=== PATIENT | male | born 1950 | race Caucasian/White ===

== ENCOUNTER 2017-02-24 19:58 | Emergency (ER) | payer BC ==
[2017-02-24] MEDS ORDERED: Tetan/Diph/Pertus SYR(Tdap)* 0.5 ML SYR(BOOSTRIX) use SYR IM ONE (21:22)
[2017-02-24] MEDS ORDERED: Lidocaine 2% PF * 5 ML VIAL INJ ONE (21:24)
--- NOTE | 2017-02-24 21:33 | UC ---
Hand/Wrist HPI - HPI Summary HPI Summary: Cut pad of L index finger with pruners earlier today. Wound still bleeding. - History Of Current Complaint Chief Complaint: UCLaceration Stated Complaint: LEFT INDEX FINGER LACERATION Time Seen by Provider: 02/24/17 21:14 Hx Obtained From: Patient ?: No Onset/Duration: Sudden Onset Severity Initially: Mild Severity Currently: Mild Character Of Pain: Dull, Aching Alleviating: Compression Related History: Dominant Hand Right - Allergies/Home Medications Allergies/Adverse Reactions: Allergies Allergy/AdvReac Type Severity Reaction Status Date / Time Penicillins Allergy Unknown Verified 02/24/17 21:15 Reaction Details Home Medications: Home Medications Aspirin [Aspirin 81 MG TAB] 81 mg PO DAILY 02/24/17 [History Confirmed 02/24/17] Valsartan TAB* [Diovan TAB*] 1 tab PO DAILY 02/24/17 [History Confirmed 02/24/17 ] PMH/Surg Hx/FS Hx/Imm Hx Cardiovascular History Of: Reports: Hypertension Respiratory History Of: Denies: COPD, Asthma - Surgical History Surgical History: None - Family History Known Family History: Negative: Blood Disorder - Social History 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 Alcohol Use: Weekly Alcohol Amount: 3-5 Substance Use Type: None Smoking Status (MU): Former Smoker When Did the Patient Quit Smoking/Using Tobacco: age 30 - Immunization History Most Recent Tetanus Shot: unknown Review of Systems Constitutional: Negative Skin: Other - L index finger lac Eyes: Negative ENT: Negative Respiratory: Negative Cardiovascular: Negative Gastrointestinal: Negative Genitourinary: Negative Motor: Negative Neurovascular: Negative Musculoskeletal: Negative Neurological: Negative Psychological: Negative All Other Systems Reviewed And Are Negative: Yes Physical Exam Triage Information Reviewed: Yes Appearance: Well-Appearing, No Pain Distress, Well-Nourished Vital Signs: Initial Vital Signs Temp 99.3 F 02/24/17 21:08 Pulse 77 02/24/17 21:08 Resp 18 02/24/17 21:08 BP 142/77 02/24/17 21:08 Vital Signs Reviewed: Yes Eye Exam: Normal Eyes: Positive: Conjunctiva Clear ENT Exam: Normal ENT: Positive: Normal ENT inspection, Hearing grossly normal, Pharynx normal, TMs normal Dental Exam: Normal Neck exam: Normal Neck: Positive: Supple Respiratory Exam: Normal Respiratory: Positive: Chest non-tender, Lungs clear, Normal breath sounds, No respiratory distress, No accessory muscle use Cardiovascular Exam: Normal Cardiovascular: Positive: RRR, No Murmur Musculoskeletal Exam: Normal Neurological Exam: Normal Psychological Exam: Normal Skin Exam: Other - 2.5cm curved lac to L index finger pad Procedures - Laceration/Wound Repair 1 Location: upper extremity Description: Linear - curved Anesthesia: Local, 2.0% Betadine Prep?: Yes Irrigated w/ Saline (ccs): 500 Laceration/Wound Explored: clean Closure: Single Layer - #6 5-0 Suture Type: Nylon Layer Closure?: No Hand/Wrist Course/Dx - Differential Dx/Diagnosis Provider Diagnoses: L index finger laceration repair Discharge - Discharge Plan Condition: Stable Disposition: HOME Additional Instructions: Come back in 8-9 days for suture removal; come back sooner if you have increasing redness, streaking up the arm, or suspect other problems. Brief handwashing and showers are fine. Make sure you take off any bandage that is soiled or soaked and place a new one.
[2017-02-24 22:38] VITALS: BP 147/90
== END 2017-02-24 22:30 | disposition home or self-care (01) ==
LOC: UCCORT 19:58
DX: S61.211A Laceration without foreign body of left index finger without damage to nail, initial encounter (principal); W45.8XXA Other foreign body or object entering through skin, initial encounter; W27.8XXA Contact with other nonpowered hand tool, initial encounter; Y93.9 Activity, unspecified; Y99.9 Unspecified external cause status; I10 Essential (primary) hypertension; Z88.0 Allergy status to penicillin
CPT/HCPCS: 12001; 90715; 99211; G0463

== ENCOUNTER 2017-03-05 09:37 | Emergency (ER) | payer BC ==
[2017-03-05 09:56] VITALS: BP 159/98
--- NOTE | 2017-03-05 11:17 | UC ---
HPI Wound/Suture Re-check - HPI Summary HPI Summary: SUTURES PLACED IN LEFT INDEX FINGER 02/24/17. NO CONCERNS OR COMPLICATIONS WITH WOUND HEALING. NO FEVERS. NO REDNESS DISCHARGE OR SWELLING TO AREA. - History Of Current Complaint Chief Complaint: UCSkin Stated Complaint: SUTURE REMOVAL Time Seen by Provider: 03/05/17 10:31 Hx Obtained From: Patient Onset/Duration: Gradual Onset, Lasting Weeks, Resolved Severity: Mild Pain Intensity: 0 Pain Scale Used: 0-10 Numeric - Allergies/Home Medications Allergies/Adverse Reactions: Allergies Allergy/AdvReac Type Severity Reaction Status Date / Time Penicillins Allergy Unknown Verified 03/05/17 09:50 Reaction Details PMH/Surg Hx/FS Hx/Imm Hx Previously Healthy: Yes Cardiovascular History Of: Reports: Hypertension Respiratory History Of: Denies: COPD, Asthma - Surgical History Surgical History: None - Family History Known Family History: Negative: Blood Disorder - Social History Lives: With Family Alcohol Use: Weekly Alcohol Amount: 3-5 Substance Use Type: None Smoking Status (MU): Former Smoker When Did the Patient Quit Smoking/Using Tobacco: age 30 - Immunization History Most Recent Tetanus Shot: unknown Review of Systems Constitutional: Negative Skin: Other - HEALING LACERATION LEFT INDEX FINGER Eyes: Negative ENT: Negative Respiratory: Negative Cardiovascular: Negative Gastrointestinal: Negative Genitourinary: Negative Motor: Negative Neurovascular: Negative Musculoskeletal: Negative Neurological: Negative Psychological: Negative All Other Systems Reviewed And Are Negative: Yes Physical Exam Triage Information Reviewed: Yes Appearance: Well-Appearing, No Pain Distress, Well-Nourished Vital Signs: Initial Vital Signs Temp 99 F 03/05/17 09:51 Pulse 72 03/05/17 09:51 Resp 14 03/05/17 09:51 BP 159/98 03/05/17 09:51 Pulse Ox 100 03/05/17 09:51 Vital Signs Reviewed: Yes Eye Exam: Normal ENT Exam: Normal ENT: Positive: Normal ENT inspection, Hearing grossly normal, TMs normal Dental Exam: Normal Neck exam: Normal Neck: Positive: Supple, Nontender, No Lymphadenopathy Respiratory Exam: Normal Respiratory: Positive: Chest non-tender, Lungs clear, Normal breath sounds, No respiratory distress Cardiovascular Exam: Normal Cardiovascular: Positive: RRR, No Murmur, Pulses Normal Abdominal Exam: Normal Musculoskeletal Exam: Normal Musculoskeletal: Positive: Strength Intact, ROM Intact Neurological Exam: Normal Psychological Exam: Normal Skin: Positive: Other - HEALING LACERATION LEFT INDEX FINGER Course/Dx - Differential Dx - Laceration/Wound Differential Diagnoses: Abscess, Cellulitis, Healing Wound, Suture Removal Provider Diagnoses: HEALING WOUND WITH SUTURE REMOVAL (#6) LEFT INDEX FINGER Discharge - Discharge Plan Condition: Stable Disposition: HOME Patient Education Materials: Stitches Removal (ED) Referrals: Aman Arteaga MD [Primary Care Provider] - Additional Instructions: SIX SUTURES REMOVED FROM LEFT INDEX FINGER.
== END 2017-03-05 10:46 | disposition home or self-care (01) ==
LOC: UCCORT 09:37
DX: S61.211D Laceration without foreign body of left index finger without damage to nail, subsequent encounter (principal); W45.8XXD Other foreign body or object entering through skin, subsequent encounter; Y92.9 Unspecified place or not applicable; I10 Essential (primary) hypertension; Z88.0 Allergy status to penicillin; Z87.891 Personal history of nicotine dependence